=== PATIENT | female | born 1980 | race Caucasian/White ===

== ENCOUNTER 2017-05-14 21:54 | Emergency (ER) | payer MEDICAID ==
[2017-05-14] MEDS ORDERED: LORazepam 2 MG/ML INJ IVP ONE (22:01)
[2017-05-14] MEDS ORDERED: NS 1,000 ML IV ONE (22:01)
--- NOTE | 2017-05-14 22:04 | EDPHY ---
H & P Time Seen by Provider: 05/14/17 21:54 HPI/ROS: CHIEF COMPLAINT: Anxiety, alcohol withdrawal HISTORY OF PRESENT ILLNESS: The patient is a 36-year-old female with a history of alcoholism and anxiety who comes to the emergency department by EMS concerned that she is going to withdrawal. She has been drinking heavily for the last 2 weeks. She got out of alcohol recovery in November. She states that she has Ativan at home but did not take any. She is prescribed Ativan for anxiety and alcohol withdrawal. She denies any recent illnesses. She states that she has been drinking to the point where she vomits. REVIEW OF SYSTEMS: Constitutional: denies: chills, fever, recent illness, recent injury EENTM: denies: blurred vision, double vision, nose congestion Respiratory: denies: cough, shortness of breath Cardiac: denies: chest pain, irregular heart rate, lightheadedness, palpitations Gastrointestinal/Abdominal: See HPI Genitourinary: denies: dysuria, frequency, hematuria, pain Musculoskeletal: denies: joint pain, muscle pain Skin: denies: lesions, rash, jaundice, bruising Neurological: See HPI denies: headache, numbness, paresthesia, tingling, dizziness, weakness Hematologic/Lymphatic: denies: blood clots, easy bleeding, easy bruising Immunologic/allergic: denies: HIV/AIDS, transplant EXAM: GENERAL: Slightly tachycardic, moderate distress HEAD: Atraumatic, normocephalic. EYES: Pupils equal round and reactive to light, extraocular movements intact, sclera anicteric, conjunctiva are normal. ENT: TMs normal, nares patent, oropharynx clear without exudates. Moist mucous membranes. NECK: Normal range of motion, supple without lymphadenopathy or JVD. LUNGS: Breath sounds clear to auscultation bilaterally and equal. No wheezes rales or rhonchi. HEART: Tachycardic , regular rhythm without murmurs, rubs or gallops. ABDOMEN: Soft, nontender, normoactive bowel sounds. No guarding, no rebound. No masses appreciated. BACK: No CVA tenderness, no spinal tenderness, step-offs or deformities EXTREMITIES: Normal range of motion, no pitting or edema. No clubbing or cyanosis. NEUROLOGICAL: Cranial nerves II through XII grossly intact. Normal speech, normal gait. 5/5 strength, normal movement in all extremities, normal sensation PSYCH: Tearful, anxious SKIN: Warm, dry, normal turgor, no visible rashes or lesions. Source: Patient Exam Limitations: No limitations - Medical/Surgical History Hx Asthma: No Hx Chronic Respiratory Disease: No Hx Diabetes: No Hx Cardiac Disease: No Hx Renal Disease: No Hx Cirrhosis: No Hx Alcoholism: No Hx HIV/AIDS: No Hx Splenectomy or Spleen Trauma: No Other PMH: denies - Family History Significant Family History: No pertinent family hx - Social History Smoking Status: Current every day smoker Alcohol Use: Sober Drug Use: None Constitutional: Initial Vital Signs Temperature (C) 37.0 C 05/14/17 22:04 Heart Rate 85 05/14/17 22:04 Respiratory Rate 18 05/14/17 22:04 Blood Pressure 133/88 H 05/14/17 22:04 O2 Sat (%) 94 05/14/17 22:04 O2 Delivery Mode Room Air Allergies/Adverse Reactions: acetaminophen [From Vicodin] Allergy (Verified 05/14/17 22:06) hydrocodone bitartrate [From Vicodin] Allergy (Verified 05/14/17 22:06) Home Medications: Medication Instructions Recorded LORAZEPAM 01/10/16 Vistaril 05/14/17 Medical Decision Making ED Course/Re-evaluation: The patient is refusing to go to the alcohol recovery Center. She states the last time she was that they did not give her any medicine and put her in a room with a bunch of man. I will not prescribe her benzodiazepines at home because she continues to drink. She really has Ativan at home . She states that she can go back to the [facility] that she was in November and will call them when she gets home. 10:30 p.m. the patient's heart rate is 86. She is not tremulous. She has received IV fluids. She refuses to go to the alcohol recovery Center. She will be dischargedfluids are done. Differential Diagnosis: Partial list of the Differential diagnosis considered include but were not limited to; alcohol withdrawal, anxiety, dehydration and although unlikely based on the history and physical exam, I also considered head injury, infection , acute coronary disease, gastroenteritis. - Data Points Medications Given: Discontinued Medications Sodium Chloride (Ns) 1,000 mls @ 0 mls/hr IV ONCE ONE; Wide Open PRN Reason: Protocol Stop: 05/14/17 22:02 Last Admin: 05/14/17 22:15 Dose: 1,000 mls Lorazepam (Ativan Injection) 2 mg IVP EDNOW ONE Stop: 05/14/17 22:02 Last Admin: 05/14/17 22:16 Dose: 2 mg Departure - Departure Disposition: Home, Routine, Self-Care Clinical Impression: Alcohol abuse Condition: Fair Instructions: Abuse of Alcohol (ED) Referrals: Pierre Ferrera DO [Doctor of Osteopathy] - As per Instructions NONE *PRIMARY CARE P,. [Primary Care Provider] - As per Instructions
[2017-05-14 22:49] VITALS: BP 120/83; PULSE 81; RESP 16; TEMP 98.6; O2SAT 99
== END 2017-05-14 22:48 | disposition home or self-care (01) ==
LOC: EDUNIT#
DX: F10.10 Alcohol abuse, uncomplicated (principal); E86.9 Volume depletion, unspecified; F17.200 Nicotine dependence, unspecified, uncomplicated
CPT/HCPCS: 96374; J2060

== ENCOUNTER 2017-07-31 12:33 | Emergency (ER) | payer MEDICAID ==
[2017-07-31] MEDS ORDERED: LORazepam 2 MG/ML INJ IVP ONE ×2 (12:42→14:17)
[2017-07-31] MEDS ORDERED: NS 1,000 ML IV ONE (12:42)
[2017-07-31 12:43] VITALS: RESP 18
--- NOTE | 2017-07-31 12:44 | EDPHY ---
H & P Smoking Status: Current every day smoker Time Seen by Provider: 07/31/17 12:42 HPI/ROS: CHIEF COMPLAINT: Vomiting, alcohol withdrawal, shaking HISTORY OF PRESENT ILLNESS: 37-year-old female presents to the emergency department with multiple episodes of vomiting and alcohol withdrawal. She typically drinks daily and her last drink was last night. She has been intermittently vomiting over last 2 weeks. She states "I can not keep anything down ". She feels extremely shaky. She has had alcohol withdrawal seizures in the past. She has not had an alcohol withdrawal seizure today. She was prescribed lorazepam in the past for anxiety and has not taken this in the last few weeks. No chest pain or difficulty breathing. No diarrhea. Last menstrual period was a few weeks ago and she denies . Denies reported trauma. Denies any other substance abuse. Denies suicidal homicidal ideation. REVIEW OF SYSTEMS: Constitutional: No fever, no chills. Eyes: No double or blurry vision. ENT: No sore throat. Respiratory: No cough, no shortness of breath. Cardiac: No chest pain. Gastrointestinal: Vomiting as above. No abdominal pain or diarrhea. Genitourinary: No dysuria. Musculoskeletal: No neck or back pain. Skin: No rashes. Neurological: No headache. (Cierra Nguyen) Past Medical/Surgical History: Alcoholism (Cierra Nguyen) Social History: Single (Cierra Nguyen) Physical Exam: General Appearance: Alert, moderate distress. Shaking, extremely anxious, tearful. Eyes: Pupils equal and round. Extraocular motions are all intact. ENT: Mouth: Mucous membranes appear very dry. Respiratory: No wheezing, rhonchi, or rales, lungs are clear to auscultation. Cardiovascular: Regular rate and rhythm. Tachycardic. Heart rate initially 120 Gastrointestinal: Abdomen is soft and nontender, no masses, no rebound or guarding, bowel sounds normal. Neurological: Alert and oriented x 3, cranial nerves II through XII grossly intact Skin: Warm and dry, no rashes. Musculoskeletal: Nontender to palpate along the cervical, thoracic or lumbar spine. Neck is supple. Extremities: Full range of motion and no peripheral edema. Psychiatric: Patient is oriented X 3, there is no agitation. (Cierra Nguyen) Constitutional: Initial Vital Signs Heart Rate 120 H 07/31/17 12:33 Respiratory Rate 18 07/31/17 12:33 Blood Pressure 124/104 H 07/31/17 12:33 O2 Sat (%) 96 07/31/17 12:33 O2 Delivery Mode Room Air Allergies/Adverse Reactions: acetaminophen [From Vicodin] Allergy (Verified 05/14/17 22:06) hydrocodone bitartrate [From Vicodin] Allergy (Verified 05/14/17 22:06) Home Medications: Medication Instructions Recorded LORAZEPAM 01/10/16 Vistaril 05/14/17 Medical Decision Making ED Course/Re-evaluation: 37-year-old known alcoholic presents to the emergency department with alcohol withdrawal feeling very tremulous. She received 1 mg of IV Ativan and IV normal saline. She was feeling better. Her ETOH level was 240. The patient was evaluated for over 2 hours in the emergency department and had no seizure activity. The her repeat to H breath was less than 200. She was given additional mg of IV Ativan and a take-home pack of Librium to take to the [facility] that they are able dispense to her symptoms of alcohol withdrawal. Her laboratory studies were all within normal limits. She had no vomiting in the emergency department. (Cierra Nguyen) I did not see this patient while she was in the emergency department. However her care was discussed with the PA while the patient was in the department. I agree with treatment plan and management (Shekhar Lambert) Differential Diagnosis: Including but not limited to alcohol withdrawal, alcohol withdrawal related seizure, electrolyte abnormality, dehydration, anxiety, substance abuse (Cierra Nguyen) - Data Points Laboratory Results: Laboratory Results 07/31/17 12:45 07/31/17 12:45 07/31/17 07/31/17 07/31/17 12:45 12:45 12:45 WBC 3.59 10^3/uL L 10^3/uL (3.80-9.50) RBC 4.12 10^6/uL L 10^6/uL (4.18-5.33) Hgb 12.9 g/dL g/dL (12.6-16.3) Hct 37.5 % L % (38.0-47.0) MCV 91.0 fL fL (81.5-99.8) MCH 31.3 pg pg (27.9-34.1) MCHC 34.4 g/dL g/dL (32.4-36.7) RDW 15.9 % H % (11.5-15.2) Plt Count 34 10^3/uL L 10^3/uL (150-400) MPV 10.3 fL fL (8.7-11.7) Neut % (Auto) 49.3 % % (39.3-74.2) Lymph % (Auto) 38.7 % % (15.0-45.0) [place] % (Auto) 6.1 % % (4.5-13.0) Eos % (Auto) 3.9 % % (0.6-7.6) Baso % (Auto) 1.7 % % (0.3-1.7) Nucleat RBC Rel Count 0.0 % % (0.0-0.2) Absolute Neuts (auto) 1.77 10^3/uL 10^3/uL (1.70-6.50) Absolute Lymphs (auto) 1.39 10^3/uL 10^3/uL (1.00-3.00) Absolute Monos (auto) 0.22 10^3/uL L 10^3/uL (0.30-0.80) Absolute Eos (auto) 0.14 10^3/uL 10^3/uL (0.03-0.40) Absolute Basos (auto) 0.06 10^3/uL 10^3/uL (0.02-0.10) Absolute Nucleated RBC 0.00 10^3/uL 10^3/uL (0-0.01) Immature Gran % 0.3 % % (0.0-1.1) Immature Gran # 0.01 10^3/uL 10^3/uL (0.00-0.10) Platelet Estimate DECREASED L (ADEQ) Sodium 142 mEq/L mEq/L (134-144) Potassium 3.6 mEq/L mEq/L (3.5-5.2) Chloride 99 mEq/L mEq/L (97-110) Carbon Dioxide 22 mEq/l mEq/l (22-31) Anion Gap 21 mEq/L H mEq/L (8-16) BUN 4 mg/dL L mg/dL (7-23) Creatinine 0.6 mg/dL mg/dL (0.6-1.0) Estimated GFR > 60 Glucose 85 mg/dL mg/dL (70-100) Calcium 9.1 mg/dL mg/dL (8.5-10.4) Beta HCG, Qual NEGATIVE Ethyl Alcohol 240 mg/dL H mg/dL (0-10) Medications Given: Discontinued Medications Chlordiazepoxide (Librium 25 Mg Prepack#6) 1 btl TAKEHOME EDNOW ONE Stop: 07/31/17 14:25 Last Admin: 07/31/17 14:25 Dose: 1 btl Sodium Chloride (Ns) 1,000 mls @ 0 mls/hr IV EDNOW ONE; Wide Open PRN Reason: Protocol Stop: 07/31/17 12:43 Last Admin: 07/31/17 12:55 Dose: 1,000 mls Lorazepam (Ativan Injection) 1 mg IVP EDNOW ONE Stop: 07/31/17 12:43 Last Admin: 07/31/17 12:56 Dose: 1 mg Lorazepam (Ativan Injection) 1 mg IVP EDNOW ONE Stop: 07/31/17 14:18 Last Admin: 07/31/17 14:23 Dose: 1 mg Ondansetron HCl (Zofran Odt) 4 mg PO EDNOW ONE Stop: 07/31/17 14:36 Last Admin: 07/31/17 14:36 Dose: 4 mg Departure - Departure Disposition: Home, Routine, Self-Care Clinical Impression: Alcohol withdrawal Qualifiers: Complication of substance-induced condition: uncomplicated Qualified Code(s): F10.230 - Alcohol dependence with withdrawal, uncomplicated Condition: Good Instructions: Alcohol Withdrawal (ED) Additional Instructions: Your being discharged to the [facility]. They can dispense Librium for you for your alcohol withdrawal. Referrals: [facility] [Outside] - As per Instructions
[2017-07-31 12:56] LABS: % IMMATURE GRANULYOCYTES 0.3 % (0.0-1.1); ABSOLUTE IMMATURE GRANULOCYTES 0.01 10^3/uL (0.00-0.10); ADD DIFF? NO; ADD MORPH? NO; ADD SCAN? NO; ATYPICAL LYMPHOCYTE FLAG 10 (0-99); FRAGMENT RBC FLAG 0 (0-99); HEMATOCRIT 37.5 % (38.0-47.0); HEMOGLOBIN 12.9 g/dL (12.6-16.3); LEFT SHIFT FLG 0 (0-99); LIPEMIA HEMOLYSIS FLAG 90 (0-99); MEAN CELL HEMOGLOBIN 31.3 pg (27.9-34.1); MEAN CELL HEMOGLOBIN CONCENTR. 34.4 g/dL (32.4-36.7); MEAN PLATELET VOLUME 10.3 fL (8.7-11.7); PLATELET CLUMPS FLAG 0 (0-99); RED BLOOD CELL COUNT 4.12 10^6/uL (4.18-5.33); RED CELL DISTRIBUTION WIDTH 15.9 % (11.5-15.2)
[2017-07-31 12:58] LABS: PLATELET COUNT 34 10^3/uL (150-400)
[2017-07-31 13:06] LABS: ANION GAP 21 mEq/L (8-16); CALCIUM 9.1 mg/dL (8.5-10.4); CARBON DIOXIDE 22 mEq/l (22-31); CHLORIDE 99 mEq/L (97-110); CREATININE 0.6 mg/dL (0.6-1.0); ETHANOL SERUM 240 mg/dL (0-10); GLOMERULAR FILTRATION RATE > 60; GLUCOSE 85 mg/dL (70-100); POTASSIUM 3.6 mEq/L (3.5-5.2); SODIUM 142 mEq/L (134-144)
[2017-07-31 13:20] LABS: PLATELET ESTIMATE DECREASED (ADEQ)
[2017-07-31] MEDS ORDERED: CHLORDIAZEPOXIDE 25MG PREPK#6 BTL TAKEHOME ONE ×2 (14:22→14:24)
[2017-07-31] MEDS ORDERED: ONDANSETRON DISINTEGRATING 4 MG TAB PO ONE (14:35)
[2017-07-31 14:44] VITALS: BP 132/95; PULSE 108; TEMP 98.2; O2SAT 96
--- NOTE | 2017-07-31 16:23 | ASDISCHSUM ---
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
== END 2017-07-31 14:44 | disposition home or self-care (01) ==
LOC: EDUNIT#
DX: F10.230 Alcohol dependence with withdrawal, uncomplicated (principal); F17.200 Nicotine dependence, unspecified, uncomplicated; E86.9 Volume depletion, unspecified
CPT/HCPCS: 96374; G0480; J2060

== ENCOUNTER 2019-01-02 20:25 | Inpatient (IN) | payer MEDICAID ==
[2019-01-02] MEDS ORDERED: NS 1,000 ML IV SCH (23:45)
[2019-01-02] MEDS ORDERED: ONDANSETRON DISINTEGRATING 4 MG TAB PO PRN (23:48)
[2019-01-02] MEDS ORDERED: ACETAMINOPHEN 325 MG TAB PO PRN (23:48)
[2019-01-02] MEDS ORDERED: ONDANSETRON 4 MG/2 ML VIAL IVP PRN (23:48)
[2019-01-02] MEDS ORDERED: HYDROmorphONE/DILAUDID 1 MG/ML INJ IVP PRN (23:52)
--- NOTE | 2019-01-03 00:06 | PDGENHP ---
History and Physical - Chief Complaint abdominal pain - History of Present Illness 38 year old female with pmh of alcohol abuse, transferred from [facility] where she presented with abdominal pain. Pain has been ongoing for at least the last week. She stopped drinking about 8 days ago, per her and her boyfriends account. She has had diffuse epigastric pain over this period that has worsened. she says that she feels like she is going to have diarrhea but then is actually somewhat constipated. Her abdomen also feels more distended than normal. She has not had any black or bloody stools or black or bloody emesis. she has not had any fevers, chills. the pain does not seem to be related to eating and is present all the time. History Information - Allergies/Home Medication List Allergies/Adverse Reactions: hydrocodone bitartrate [From Vicodin] Allergy (Verified 05/14/17 22:06) Home Medications: LORazepam [Ativan (*)] 1 mg PO BID PRN 01/02/19 [Last Taken 12/31/18] Ondansetron Odt [Zofran Odt 4 mg (*)] 4 mg PO TID PRN 01/02/19 [Last Taken Unknown] hydrOXYzine HCL [hydrOXYzine HCL (RX)] 25 mg PO Q8 PRN 01/02/19 [Last Taken Unknown] traMADol [Ultram 50 mg (*)] 50 mg PO Q6 PRN 01/02/19 [Last Taken 01/02/19] I have personally reviewed and updated: family history, medical history, social history, surgical history - Past Medical History Additional medical history: etoh abuse, cirrhosis - Surgical History Reports: no pertinent surgical hx - Family History Positive for: non-pertinent - Social History Smoking Status: Current every day smoker Review of Systems Review of Systems: ROS: 10pt was reviewed & negative except for what was stated in HPI & below Physical Exam Physical Exam: Temp Pulse Resp BP Pulse Ox 36.6 C 85 20 111/68 94 01/02/19 23:21 01/02/19 23:21 01/02/19 23:21 01/02/19 23:21 01/02/19 23:21 O2 (L/minute) 2 Constitutional: no apparent distress, appears nourished, not in pain Eyes: PERRL, anicteric sclera, EOMI Ears, Nose, Mouth, Throat: moist mucous membranes, hearing normal, ears appear normal, no oral mucosal ulcers Cardiovascular: regular rate and rhythym, no murmur, rub, or gallop, No edema Respiratory: no respiratory distress, no rales or rhonchi, clear to auscultation Gastrointestinal: tenderness, distension Genitourinary: no bladder fullness, no bladder tenderness Skin: warm, normal color, no rashes or abrasions, no fluctuance, no induration, No mottled Musculoskeletal: full muscle strength, no muscle tenderness, normal joint ROM, no joint effusions Psychiatric: interacting appropriately, not anxious, not encephalopathic, thought process linear Lymph, Heme, Immunologic: no cervical LAD, no supraclavicular LAD Lab Data & Imaging Review 01/03/19 04:40 01/03/19 04:40 Assessment & Plan Assessment: 38 [facility] from [place] where she presented with Ab pain. abdominal pain- she has a transaminitis. CT which I reviewed shows thickened gallbladder wall and findings consistent with possible cholecystitis. Her LFTs are not that high, and her alk phos is only mildly elevated at 144, but her bilirubin is 5.5. could be alcoholic hepatitis as well. -consult general surgery in am -check PT to calculate Maddreys discriminate function -repeat LFTS in am --pain control -antiemetics PNR -fluids -NPO -no mention of CBD duct dilation or obstruction on CT. Etoh abuse- amol says she drinks a pint a day of whiskey but her last drink was over 8 days ago. per her boyfriend she already went through withdrawal over the last week by taking ativan PRN. -monitor for s/s of withdrawal Transaminitis- with hyperbilirubinemia. I suspect she has underlying liver disease secondary to etoh abuse, along with possible cholecystitis. Her AST/ALT ratio is consistent with alcohol abuse. -general surgery consult in am -monitor LFTs. Cirrhosis- CT at [place] showed possible underlying cirrhosis. she does not have any obvious ascites or encephalopathy, or LE edema. Monitor for now. PPX- SCDs, heparin Fluids- NS Lytes- WNL Nutrition- NPO Cor- Full Dispo- observation for ab pain, transaminitis.
[2019-01-03] MEDS ORDERED: diphenhydrAMINE 25 MG CAP PO ONE (00:30)
[2019-01-03] MEDS: LORazepam 2 MG/ML INJ IVP PRN ×3 (01:39→17:56)
[2019-01-03 05:06] LABS: PLATELET COUNT 116 10^3/uL (150-400)
[2019-01-03 05:13] LABS: INR 1.41 (0.83-1.16); PROTIME(PATIENT) 17.4 SEC (12.0-15.0)
[2019-01-03] MEDS: HYDROmorphONE/DILAUDID 1 MG/ML INJ IVP PRN ×5 (09:21→22:21)
[2019-01-03] MEDS: PANTOPRAZOLE SODIUM 40 MG VIAL IVP SCH ×2 (11:06→19:23)
--- NOTE | 2019-01-03 12:18 | HOSPPROG ---
Hospitalist Progress Note Assessment/Plan: 38 yo female transferred from [place] for Abd pain, transaminitis, and CT c/ w with cholelithiasis and thickened GB wall #Abd Pain with abd distention -Etiology is unclear. Abd pain is generalized but mostly in the bilateral lower quadrants of her abdomen. No Leukocytosis. No fever -Will get Abd US now -Unclear if a surgical consult has been obtained. Will clarify -Cont NPO for now -No e/o pancreatitis -Empiric PPI for now -CT A/P at [facility] did now show any obstruction #Cholelithiasis and Hyperbilirubinemia #Cirrhosis per Imaging #Coagulopathy, likely from liver disease #chronic ETOH abuse, not in WD #Hepatic Lesions: [address] -Will need MRI for further characterization. Can likely be done once we deal with any acute issues #Transaminitis with mild elevation of AST and ALT -She reports that this is chronic #Hypomagnesemia: -will replace with protocol Plan: Keep NPO cont IVF obtain Abd US, KUB (reports worse distention, reports constipation) replace electrolytes no abx for now. await studies, may need to obtain or clarify if surgical consult has been obtained change to inpatient Imaging: CT A/P Cholelithiasis, thickened GB wall. No intra/extrahepatic biliary duct dilatation Nodular Liver, 2 liver lesions no bowel obstruction Subjective: no cp or sob. still with abd pain. reports worse distention Objective: Vital Signs Temp Pulse Resp BP Pulse Ox 36.8 C 70 16 120/84 H 92 01/03/19 11:52 01/03/19 11:52 01/03/19 11:52 01/03/19 11:52 01/03/19 11:52 Laboratory Results 01/03/19 04:40 01/03/19 04:40 PT 17.4 SEC (12.0-15.0) H 01/03/19 04:40 INR 1.41 (0.83-1.16) H 01/03/19 04:40 - Physical Exam Constitutional: no apparent distress Eyes: PERRL, EOMI Ears, Nose, Mouth, Throat: moist mucous membranes, hearing normal Cardiovascular: regular rate and rhythym, No edema Respiratory: no respiratory distress, no rales or rhonchi, clear to auscultation Gastrointestinal: normoactive bowel sounds, tenderness (generalized, worse bilateral lower quadrants), distension, No guarding Skin: warm Neurologic: AAOx3 Psychiatric: interacting appropriately, not anxious, not encephalopathic Lymph, Heme, Immunologic: No petechiae ICD10 Worksheet Patient Problems: Problems Problem Status Onset Abdominal pain Acute - ICD10 Problem Qualifiers (1) Abdominal pain
[2019-01-03] MEDS ORDERED: MAGNESIUM SULF 2 GM/WATER 50 ML IV ONE (12:22)
--- NOTE | 2019-01-03 15:37 | PDMN ---
Medical Necessity Medical necessity: Change to IP, as of 01/03/19, per & MCG M-05; los >2 mn for ongoing management of abdominal pain w/worsening abdominal distention of unclear etiology; requiring further workup/monitoring, NPO status, IVFs & pain management; hx alcohol abuse
--- NOTE | 2019-01-03 16:18 | ASMTCMCOM ---
CM Note CM Note Notes: Pt is a 38 y/o female admitted for cholecystitis. Pt has a hx of etoh abuse. Surgery has been consulted. CM met w/ pt and provided etoh resources. CM completed CAGE. Pt is interested in stopping her etoh. Pt reports that she lost her mother and sister in November. Pt reports that she comes from a family of alcoholics. Pt will most likely d/c without any needs when medically stable. Referral made to [facility]. CM available for changes. Plan: Independent Date Signed: 01/03/2019 04:17 PM Electronically Signed By:MICHAEL Lee
--- NOTE | 2019-01-03 16:19 | ASMTCAGE ---
CAGE Do you feel you ought to Answers: Yes cut down on your drinking or drug use? Do people annoy you by Answers: No criticizing your drinking or drug use? Do you feel guilty about Answers: No your drinking or drug use? Do you drink or use drugs Answers: No first thing in the morning ([employer])? Date Signed: 01/03/2019 04:18 PM Electronically Signed By:MICHAEL Lee
[2019-01-03] MEDS ORDERED: MAGNESIUM CITRATE 300 ML BOTTLE PO ONE (17:23)
[2019-01-04] MEDS: LORazepam 2 MG/ML INJ IVP PRN (02:21)
[2019-01-04] MEDS: HYDROmorphONE/DILAUDID 1 MG/ML INJ IVP PRN ×2 (02:22→07:56)
[2019-01-04 05:50] LABS: INR 1.41 (0.83-1.16); PROTIME(PATIENT) 16.6 SEC (12.0-15.0)
[2019-01-04 05:54] LABS: PLATELET COUNT 141 10^3/uL (150-400)
[2019-01-04] MEDS: PANTOPRAZOLE SODIUM 40 MG VIAL IVP SCH (07:56)
[2019-01-04 08:23] LABS: HEPATITIS A ANTIBODY IGM (BCH) NEGATIVE (NEGATIVE); HEPATITIS B CORE AB IGM NEGATIVE (NEGATIVE); HEPATITIS B SURFACE ANTIGEN NEGATIVE (NEGATIVE); HEPATITIS C ANTIBODY TOTAL NEGATIVE (NEGATIVE)
[2019-01-04] MEDS ORDERED: MAGNESIUM HYDROXIDE 30 ML UDCUP PO PRN (10:36)
[2019-01-04] MEDS ORDERED: PHYTONADIONE 2.5 MG/2.5 ML ORAL UDL PO ONE (10:37)
[2019-01-04] MEDS ORDERED: LACTULOSE 20 GM/30 ML UDCUP PO SCH (10:45)
[2019-01-04] MEDS: THIAMINE HCL 100 MG TAB PO SCH (11:12)
[2019-01-04] MEDS: FOLIC ACID 1 MG TAB PO SCH (11:12)
[2019-01-04] MEDS: POLYETHYLENE GLYCOL 3350 17 GM PKT PO SCH (11:13)
[2019-01-04] MEDS: PANTOPRAZOLE SODIUM 40 MG TAB PO SCH (11:13)
--- NOTE | 2019-01-04 11:31 | GCON ---
[f rep st] CONSULTATION GI INPATIENT CONSULTATION DATE OF CONSULTATION: 01/04/2019 I was kindly requested to see the patient by Dr. Derrick Salas in consultation for a chief complaint of abnormal liver tests. She is a 38-year- old female who presented to the [facility] with abdominal pain. She has felt constipated for about 10 days, with the above pain. Overall , it is generalized, but mostly in the bilateral lower quadrants, right greater than left. It radiates to her lower back bilaterally. She is an alcoholic, and states her last drink was eight [address] scan done at [facility] apparently showed some possible underlying cirrhosis , with mention of gallstones. Ultrasound here shows just gallbladder sludge, with normal biliary ducts, and no ascites. There is hepatosplenomegaly, and signs of portal hypertension. She was given something last night to try to have a complete bowel movement. She did have multiple liquid stools with some "little chunks". Laboratories show a total bilirubin of 6.6, which is increased from yesterday. AST 139 with an ALT of 53, which is stable. Normal alkaline phosphatase. Normal lipase. PAST MEDICAL HISTORY: 1. As above. 2. Otherwise, noncontributory. MEDICATIONS: Outpatient medications: 1. Ativan. 2. Zofran. 3. Hydroxyzine. 4. Tramadol. Inpatient medications include: IV Protonix. ALLERGIES: Include: Hydrocodone. SOCIAL HISTORY: As above. FAMILY HISTORY: Negative for similar abdominal pain. REVIEW OF SYSTEMS: Positive pertinent review of systems as per my HPI. Otherwise, complete review of systems is negative. PHYSICAL EXAM: CONSTITUTIONAL: Nontoxic appearing. VITAL SIGNS: Stable. SKIN : Warm, dry. EYES: Pupils equal, round, reactive to light and accommodation. EARS, NOSE, MOUTH, and THROAT: Oropharynx without masses, moist mucosa. CARDIOVASCULAR: Normal S2, normal PMI. RESPIRATORY: Lungs clear to auscultation and percussion anteriorly. GASTROINTESTINAL: Abdomen mildly distended, with generalized tenderness throughout, but without rebound. No masses felt. NEUROLOGIC: Grossly nonfocal, cranial nerves grossly intact. PSYCHIATRIC: Orientation, insight appropriate. MUSCULOSKELETAL: Strength grossly normal throughout, normal station. LABORATORY DATA: Laboratories include the above. Normal basic metabolic panel. Hematocrit 29.7%. Platelet count 141,000. Normal white count. Prothrombin time 16.6 with an INR of 1.41. Negative hepatitis serologies. ASSESSMENT: 1. Jaundice. Almost certainly due to alcoholic hepatitis. 2. Abdominal pain. Overall, suspect nonspecific, most likely related to her alcoholic hepatitis and the secondary hepatomegaly and stretch of the liver capsule. A contribution from constipation is also possible. Otherwise, unremarkable CT, ultrasound, lipase, etc. Although gallbladder sludge and possible stones were seen, her symptoms do not appear biliary to me. PLAN: 1. In terms of her alcoholic hepatitis, this should resolve with time. Recommend periodic liver function tests, to see when her total bilirubin peaks, and then begins to decrease. Once it begins to decrease, okay to discharge home. Recommend no outpatient alcohol. 2. MiraLAX daily. 3. Milk of Magnesia as needed. 4. We will check a urinalysis, in case her abdominal pain is due to a urinary tract infection. Doubt. 5. Vitamin K x1. 6. alki-vits. I will sign off. I will check up on her urinalysis, but suspect will be negative. Otherwise, please let me know if we can be of further help in the future. Copy requested to: SHEILA Dunaway Dr. /[id number]/MODL MTDD
--- NOTE | 2019-01-04 11:52 | HOSPPROG ---
Hospitalist Progress Note Assessment/Plan: 38 yo female transferred from [place] for Abd pain, transaminitis, and CT c/ w with cholelithiasis and thickened GB wall #Abd Pain with abd distention -Etiology is unclear. Abd pain is generalized but mostly in the bilateral lower quadrants of her abdomen. No Leukocytosis. No fever. -Abd US does not reveal biliary disease. No ascites -No e/o pancreatitis -Empiric PPI -CT A/P at 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 start oral pain meds. d/c iv pain meds Keep inpatient tonight Imaging: CT A/P Cholelithiasis, thickened GB wall. No intra/extrahepatic biliary duct dilatation Nodular Liver, 2 liver lesions no bowel obstruction ABD US shows: Dilated GB-Mild, no intraluminal stones, no wall thickening. Negative sonographic Leonard's sign. Normal CBD at 0.4cm Portal HTN, portosystemic shunts normal kidneys no ascites Subjective: several BM's. no cp or sob. still with bilateral abd pain Objective: Vital Signs Temp Pulse Resp BP Pulse Ox 37.1 C 82 18 118/71 98 01/04/19 11:33 01/04/19 11:33 01/04/19 11:33 01/04/19 11:33 01/04/19 11:33 Laboratory Results 01/04/19 04:55 01/04/19 04:55 01/03/19 01/04/19 01/05/19 05:59 05:59 05:59 Output Total 500 Balance -500 PT 16.6 SEC (12.0-15.0) H 01/04/19 04:55 INR 1.41 (0.83-1.16) H 01/04/19 04:55 - Physical Exam Constitutional: no apparent distress Eyes: PERRL, EOMI Ears, Nose, Mouth, Throat: moist mucous membranes, hearing normal Cardiovascular: regular rate and rhythym Respiratory: no respiratory distress Gastrointestinal: normoactive bowel sounds, tenderness (generalized), No distension Skin: warm Neurologic: AAOx3 Psychiatric: interacting appropriately, not anxious, not encephalopathic Lymph, Heme, Immunologic: No petechiae ICD10 Worksheet Patient Problems: Problems Problem Status Onset Abdominal pain Acute - ICD10 Problem Qualifiers (1) Abdominal pain
[2019-01-04] MEDS: oxyCODONE IR 5 MG TAB PO PRN ×2 (12:21→17:00)
[2019-01-04] MEDS: LORazepam 0.5 MG TAB PO PRN (13:08)
[2019-01-04] MEDS: DIPHENHYDRAMINE CREAM TP PRN (17:01)
[2019-01-05] MEDS: LORazepam 0.5 MG TAB PO PRN ×4 (01:49→21:35)
[2019-01-05] MEDS: oxyCODONE IR 5 MG TAB PO PRN ×5 (01:49→21:35)
[2019-01-05 05:52] LABS: PLATELET COUNT 163 10^3/uL (150-400)
[2019-01-05 06:01] LABS: INR 1.43 (0.83-1.16); PROTIME(PATIENT) 17.6 SEC (12.0-15.0)
[2019-01-05] MEDS: THIAMINE HCL 100 MG TAB PO SCH (09:05)
[2019-01-05] MEDS: POLYETHYLENE GLYCOL 3350 17 GM PKT PO SCH ×2 (09:05→20:30)
[2019-01-05] MEDS: PANTOPRAZOLE SODIUM 40 MG TAB PO SCH (09:05)
[2019-01-05] MEDS: FOLIC ACID 1 MG TAB PO SCH (09:05)
--- NOTE | 2019-01-05 12:16 | HOSPPROG ---
Hospitalist Progress Note Assessment/Plan: 38 yo female transferred from [place] for Abd pain, transaminitis, and concerns for acute Cholecystitis. On reexamination the pt did not have RUQ pain or leukocytosis. Abd US was not consistent with biliary disease. Diagnosis: #Abd Pain with abd distention, improved but persistent -Etiology is unclear. Abd pain is generalized but mostly in the bilateral lower quadrants of her abdomen. No Leukocytosis. No fever. -Abd US does not reveal biliary disease. 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 Not responsive to Vit K #chronic ETOH abuse, not in WD #Hepatic Lesions: [address] -can be followed as an outpatient #Alcoholic hepatitis: Transaminitis with mild elevation of AST and ALT, stable overall #Hypomagnesemia: -will replace with protocol #constipation -s/p multiple bowels -Miralax #Thrombocytopenia, resolved Plan: Overall her pain and abd exam have improved but she is still uncomfortable. Labs are improving as well although mild elevation of AST/ALT and INR are still present. Will provide pain support increase Miralax cont low sodium diet cont inpatient Imaging: CT A/P Cholelithiasis, thickened GB wall. No intra/extrahepatic biliary duct dilatation Nodular Liver, 2 liver lesions no bowel obstruction ABD US shows: Dilated GB-Mild, no intraluminal stones, no wall thickening. Negative sonographic Leonard's sign. Normal CBD at 0.4cm Portal HTN, portosystemic shunts normal kidneys no ascites Subjective: still with abd pain. no n/v. thinks she is constipated again. Objective: Vital Signs Temp Pulse Resp BP Pulse Ox 37.3 C 99 16 111/69 92 01/05/19 07:25 01/05/19 09:28 01/05/19 07:25 01/05/19 09:28 01/05/19 07:25 Laboratory Results 01/05/19 04:52 01/05/19 04:52 01/04/19 01/05/19 01/06/19 05:59 05:59 05:59 Output Total 1000 Balance -1000 PT 17.6 SEC (12.0-15.0) H 01/05/19 04:52 INR 1.43 (0.83-1.16) H 01/05/19 04:52 - Physical Exam Constitutional: no apparent distress Eyes: PERRL, EOMI Ears, Nose, Mouth, Throat: moist mucous membranes, hearing normal Cardiovascular: regular rate and rhythym, No edema Respiratory: no respiratory distress, no rales or rhonchi, clear to auscultation Gastrointestinal: normoactive bowel sounds, tenderness (mostly lower quadrants) , distension (minimal distention) Skin: warm Neurologic: AAOx3 Psychiatric: interacting appropriately, not anxious, not encephalopathic ICD10 Worksheet Patient Problems: Problems Problem Status Onset Abdominal pain Acute - ICD10 Problem Qualifiers (1) Abdominal pain
--- NOTE | 2019-01-05 15:19 | ASMTCMCOM ---
CM Note CM Note Notes: Spoke w/ , pt not ready for dc today. Will otherwise be independent at discharge, pt was given etoh resources. CM available for any changes. DC Plan: Independent Date Signed: 01/05/2019 03:19 PM Electronically Signed By:Julee He RN
[2019-01-06] MEDS: LORazepam 0.5 MG TAB PO PRN ×3 (02:46→15:42)
[2019-01-06] MEDS: oxyCODONE IR 5 MG TAB PO PRN ×3 (02:47→15:43)
[2019-01-06 05:18] LABS: PLATELET COUNT 162 10^3/uL (150-400)
[2019-01-06 05:34] LABS: INR 1.46 (0.83-1.16); PROTIME(PATIENT) 17.1 SEC (12.0-15.0)
[2019-01-06] MEDS: POLYETHYLENE GLYCOL 3350 17 GM PKT PO SCH (09:04)
[2019-01-06] MEDS: FOLIC ACID 1 MG TAB PO SCH (09:04)
[2019-01-06] MEDS: THIAMINE HCL 100 MG TAB PO SCH (09:04)
[2019-01-06] MEDS: PANTOPRAZOLE SODIUM 40 MG TAB PO SCH (09:04)
[2019-01-06] MEDS: DIPHENHYDRAMINE CREAM TP PRN (09:07)
--- NOTE | 2019-01-06 13:35 | PDDCSUM ---
Discharge Summary Discharge Summary: 38 yo female transferred from [place] for Abd pain, transaminitis, and concerns for acute Cholecystitis. On reexamination the pt did not have RUQ pain or leukocytosis. Abd US was not consistent with biliary disease. She was seen by GI with no interventions needed.. She is found to have advance liver disease. Please see below for details per problem list. Her labs are improving. Abd pain is present but improving. She agrees to ETOH cessation. She will f/u with her PCP next week. DDX Diagnosis: #Abd Pain with abd distention, improved but persistent -Etiology is unclear. Abd pain is generalized but mostly in the bilateral lower quadrants of her abdomen. No Leukocytosis. No fever. -Abd US does not reveal biliary disease. 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 Not responsive to Vit K #chronic ETOH abuse, not in [place] #Hepatic Lesions: [address] -can be followed as an outpatient #Alcoholic hepatitis: Transaminitis with mild elevation of AST and ALT, stable overall #Hypomagnesemia: -replaced #constipation -s/p multiple bowels -Miralax #Thrombocytopenia, resolved Exam: NAD AAOX3 RRR CTA B S/NT/ND MEDS: SEE MED REC. Pain meds were provided Imaging: CT A/P Cholelithiasis, thickened GB wall. No intra/extrahepatic biliary duct dilatation Nodular Liver, 2 liver lesions no bowel obstruction ABD US shows: Dilated GB-Mild, no intraluminal stones, no wall thickening. Negative sonographic Leonard's sign. Normal CBD at 0.4cm Portal HTN, portosystemic shunts normal kidneys no ascites F/U: with her PCP next week. Will need repeat labs. Total time spent on d/c is 35 mins.
--- NOTE | 2019-01-06 13:49 | ASDISCHSUM ---
Discharge Information Plan Status:Home with No Needs Medically Cleared to Leave:01/05/2019 Discharge Date:01/05/2019 CM D/C Disposition:Home, Routine, Self-Care ADT D/C Disposition:Home, Routine, Self-Care Projected Discharge Date:01/05/2019 Transportation at D/C:Family Discharge Delay Reason: Follow-Up Date:01/05/2019 Discharge Slot: Final Diagnosis: Placement Information Patient Contact Information Contact Name:LINSEY Relationship:Other Address: Work Phone: City: [facility] Phone: State/Source Audio Code: Email: Financial Information Financial Class:Medicaid Primary Plan Desc:[employer] [place] [place] Primary Plan Number:[id number] Secondary Plan Desc: Secondary Plan Number: Assessment Information LACE LACE Length of stay for Answers: 3 days current admission Acuity / Level of Answers: Yes Care: Did the patient have an inpatient admission? # of Emergency department Answers: 0 visits in the last 6 months Social determinants Answers: History of substance abuse (ETOH, street drugs, prescription drugs, etc.) Mental health diagnosis (anxiety, depression, pers onality disorders, etc.) Score: 12 Date Signed: 01/06/2019 01:46 PM Electronically Signed By:MERVAT Hernandez [facility] Progress Note CM Note GISELE Note Notes: Pt is a 38 y/o female admitted for cholecystitis. Pt has a hx of etoh abuse. Surgery has been consulted. CM met w/ pt and provided etoh resources. CM completed CAGE. Pt is interested in stopping her etoh. Pt reports that she lost her mother and sister in November. Pt reports that she comes from a family of alcoholics. Pt will most likely d/c without any needs when medically stable. Referral made to [facility]. CM available for changes. Plan: Independent Date Signed: 01/03/2019 04:17 PM Electronically Signed By:MICHAEL Lee CAGE Questionnaire CAGE Do you feel you ought to Answers: Yes cut down on your drinking or drug use? Do people annoy you by Answers: No criticizing your drinking or drug use? Do you feel guilty about Answers: No your drinking or drug use? Do you drink or use drugs Answers: No first thing in the morning ([employer])? Date Signed: 01/03/2019 04:18 PM Electronically Signed By:MICHAEL Lee [facility] Progress Note CM Note CM Note Notes: Spoke w/ , pt not ready for dc today. Will otherwise be independent at discharge, pt was given etoh resources. CM available for any changes. DC Plan: Independent Date Signed: 01/05/2019 03:19 PM Electronically Signed By:Julee He RN Case Management Discharge Plan Note Case Management Discharge Discharge Order Complete? Answers: Yes Patient to Obtain Answers: Independently Medications Transportation Arranged Answers: Family/Friends Discharge Comments Notes: Pt is discharging home today with no CM needs. She was provided with etoh resources. Date Signed: 01/06/2019 01:48 PM Electronically Signed By:MERVAT Hernandez Intervention Information
[2019-01-06 15:06] VITALS: BP 110/72
== END 2019-01-06 16:02 | disposition home or self-care (01) | DRG 251 ==
LOC: F3E 21:42 → OBSVTOIN 01-03 12:08
PROVIDERS: ADMIT Internal Medicine; ATTEND Family Medicine
DX: R10.84 Generalized abdominal pain (principal); D68.4 Acquired coagulation factor deficiency; D69.6 Thrombocytopenia, unspecified; K76.6 Portal hypertension; E83.42 Hypomagnesemia; K70.10 Alcoholic hepatitis without ascites; K70.30 Alcoholic cirrhosis of liver without ascites; F10.10 Alcohol abuse, uncomplicated; K76.9 Liver disease, unspecified; K59.00 Constipation, unspecified
CPT/HCPCS: G0472; J1170; J2060; J2405; J3475